=== PATIENT | female | born 1950 | race Two or more races ===

== ENCOUNTER → 2024-05-26 | Outpatient (CLI) | payer MEDICAID ==
[2024-05-26 09:21] LABS: Basophils # (auto) 0.1 10 ^3/uL (0-0.2); Basophils % (auto) 0.7 % (0.0-2.0); Eosinophils # (auto) 0.3 10 ^3/uL (0-0.8); Eosinophils % (auto) 2.2 % (0.0-7.0); Hematocrit 46.1 % (36.0-46.0); Hemoglobin 15.2 g/dL (12.2-16.2); Lymphocytes # (auto) 3.9 10 ^3/uL (0.4-5.4); Lymphocytes % (auto) 31.7 % (10.0-50.0); Mean Corpuscular Hemoglobin 29.1 pg (28.0-32.0); Mean Corpuscular Volume 88.3 fL (80.0-100.0); Monocytes # (auto) 0.5 10 ^3/uL (0-1.3); Monocytes % (auto) 3.8 % (0.0-12.0); Neutrophils # (auto) 7.5 10 ^3/uL (1.6-8.6); Neutrophils % (auto) 61.6 % (37.0-80.0); Platelet Count (auto) 293 10^3/uL (140-450); Red Blood Cells 5.22 10^6/uL (4.0-5.20); White Blood Cell 12.2 10^3/uL (4.4-10.8)
[2024-05-26 09:34] LABS: Urine Bacteria FEW /hpf (None Seen); Urine Blood 1+ /uL (Negative); Urine Clarity Clear (Clear); Urine Color Light-Yellow (Yellow); Urine Protein, UAD 2+ (Negative); Urine Specific Gravity 1.012 (1.001-1.035); Urine Urobilinogen Normal (Negative); Urine WBC 3 /hpf (0 - 5); Urine pH 6.5 (5.0-9.0)
[2024-05-26 09:47] LABS: Alanine Aminotransferase 14 U/L (7-40); Albumin 4.9 g/dL (3.2-4.8); Alkaline Phosphatase 94 U/L (46-116); Anion Gap 10 (5-15); Aspartate Aminotransferase 13 U/L (13-40); BUN/Creatinine Ratio 20.8 (10.0-20.0); Blood Urea Nitrogen 15 mg/dL (9-23); Calcium 10.6 mg/dL (8.7-10.4); Carbon Dioxide 24 mmol/L (20-31); Chloride 104 mmol/L (98-107); Glucose 126 mg/dL (74-106); LDL Cholesterol 86 mg/dL (< 100); Potassium 4.2 mmol/L (3.5-5.1); Sodium 138 mmol/L (136-145); Triglycerides 160 mg/dL (< 150)
[2024-05-26 09:48] LABS: Bilirubin, Total 0.6 mg/dL (0.2-1.0); Cholesterol 158 mg/dL (< 200); HDL Cholesterol 52 mg/dL (40-59); Total Protein 7.8 g/dL (5.7-8.2)
[2024-05-27 12:22] LABS: Folate (Folic Acid) 23.25 ng/mL (>5.38)
== END | disposition home or self-care (01) ==
LOC: LAB 08:48
PROVIDERS: ATTEND Internal Medicine
DX: E55.9 Vitamin D deficiency, unspecified (principal); E61.2 Magnesium deficiency; R94.6 Abnormal results of thyroid function studies; R73.09 Other abnormal glucose; R82.79 Other abnormal findings on microbiological examination of urine; R82.90 Unspecified abnormal findings in urine; D51.9 Vitamin B12 deficiency anemia, unspecified; R79.89 Other specified abnormal findings of blood chemistry
CPT/HCPCS: 36415; 80053; 80061; 81001; 82306; 82607; 82746; 83036; 84443; 84550; 85025; 87086

== ENCOUNTER 2024-06-15 08:10 | Emergency (ER) | payer MEDICAID ==
[~2024-06-15] VITALS: Ht 165.1 cm; Wt 93.0 kg
--- NOTE | 2024-06-15 08:39 | ED.PDOC ---
History of Present Illness HPI Comments 73 y/o F, with a Hx of DDD, DM, HLD, HTN, hypothyroidism, and morbid obesity, presents with daughter for c/o posterior neck pain that radiates towards her left-arm, with associated numbness and tingling in her left upper extremity. Per daughter, patient reports having symptoms for the past 8 days, with minimal relief or improvement with [id number] Tylenol. She was also reported to have had chest pain and shortness of breath during initial onset of symptoms for the past 2 days that has since subsided. She denies having any current chest pain, shortness of breath, palpitations, weakness, fever, chills, or other associated symptoms or modifiers at this time. Chief Complaint: Upper Extremity Time Seen by MD: 08:30 Reviewed Notes: Nurses Notes, Medications, Allergies Allergies: Coded Allergies: NO KNOWN ALLERGIES (Unverified , 06/15/24) Home Meds Active Scripts Meloxicam (Meloxicam) 7.5 Mg Tab, 1 TAB PO DAILY PRN, #30 TAB 2 Refills prn pain, take with food Prov:PIERRE CHAMPION MD 06/15/24 Methocarbamol (Methocarbamol) 500 Mg Tab, 500 MG PO TID PRN, #30 TAB prn muscle pain/spasm Prov:PIERRE CHAMPION MD 06/15/24 Gabapentin (Gabapentin) 300 Mg Cap, 1 CAP PO TID PRN, #90 CAP 5 Refills prn nerve pain Prov:PIERRE CHAMPION MD 06/15/24 Diclofenac Sodium (Topical) (Diclofenac Sodium) 1 % Gel, 1 % TD TIDPRN PRN, #3.5 OZ prn pain Prov:PIERRE CHAMPION MD 06/15/24 Information Source: Patient, Relative (Child) Mode of Arrival: Ambulatory Severity: Moderate Timing: Days Duration: Since onset Prehospital treatment: None Past Medical History PAST MEDICAL HISTORY: DM, High Lipids, HTN, Thyroid (hypothyroidism ) Past Medical History (Other): degenerative disc disease (DDD), morbid obesity Surgical History: Denies all 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 Hx Social History Smoker: Non-Smoker Alcohol: Denies ETOH Use Drugs: Denies Drug Use Lives In: Home Neurological: reports: numbness (left arm), tingling (left arm) Musculoskeletal: reports: neck pain (posterior side), others (left arm pain ) All Other Systems: Reviewed and Negative (negative unless otherwise stated above or in HPI) Physical Exam General Appearance: No Apparent Distress, Obese HEENT: Other (Unremarkable) Neck: Full Range of Motion, Normal Inspection, Other (Posterior Midline and left paraspinal tenderness) Respiratory: Lungs Clear, No Accessory Muscle Use, No Respiratory Distress, Normal Breath Sounds Cardiovascular: No Edema, No JVD, Regular Rate/Rhythm Breast Exam: Deferred Gastrointestinal: Non Tender, Soft Genitalia: Deferred Pelvic: Deferred Rectal: Deferred Extremities: Normal inspection, Normal range of motion, Non-tender, No pedal edema Neurologic: Alert (Oriented x4), senior field engineer II-XII nml as Tested, No Motor Deficits, Normal Affect, Normal Mood, No Sensory Deficits Cerebellar Function: NOT DONE Reflexes: NOT DONE Skin: Dry, Normal Color, Warm Lymphatic: NOT DONE Was a procedure done? Was a procedure done?: No EKG EKG : Comments Sinus rhythm, rate 98, normal SD and QRS intervals, QTC 469, normal axis, normal QRS, no ST/T changes. Differential Dx Considerations may include: Cervical radiculopathy, degenerative disc disease, musculoskeletal pain, spine lesion, ACS, ID, chest wall pain, arrhythmia, pneumonia, among others X-Ray, Labs, Meds, VS Vital Signs Date Time Temp Pulse Resp B/P (MAP) Pulse Ox O2 Delivery O2 Flow Rate FiO2 06/15/24 09:26 97.8 94 16 140/69 (92) 97 97.8 06/15/24 09:26 94 16 97 Room Air 06/15/24 08:30 97.8 98 18 152/65 (94) 97 06/15/24 08:28 98 Lab Test 06/15/24 11:42 06/15/24 10:10 06/15/24 09:20 06/15/24 08:24 Range/Units Troponin I High Sensitivity Pending < 3 L < 3 L </=34 ng/L White Blood Count 10.4 4.4-10.8 10^3/uL Red Blood Count 4.94 4.0-5.20 10^6/uL Hemoglobin 14.8 12.2-16.2 g/dL Hematocrit 43.9 36.0-46.0 % Mean Corpuscular Volume 88.9 80.0-100.0 fL Mean Corpuscular Hemoglobin 29.9 28.0-32.0 pg Mean Corpuscular Hemoglobin Concent 33.6 32.0-36.0 g/dL Red Cell Distribution Width 13.9 11.8-14.3 % Platelet Count 299 140-450 10^3/uL Mean Platelet Volume 7.8 6.9-10.8 fL Neutrophils (%) (Auto) 56.3 37.0-80.0 % Lymphocytes (%) (Auto) 36.1 10.0-50.0 % Monocytes (%) (Auto) 4.5 0.0-12.0 % Eosinophils (%) (Auto) 2.2 0.0-7.0 % Basophils (%) (Auto) 0.9 0.0-2.0 % Neutrophils # (Auto) 5.9 1.6-8.6 10 ^3/uL Lymphocytes # (Auto) 3.7 0.4-5.4 10 ^3/uL Monocytes # (Auto) 0.5 0-1.3 10 ^3/uL Eosinophils # (Auto) 0.2 0-0.8 10 ^3/uL Basophils # (Auto) 0.1 0-0.2 10 ^3/uL Nucleated Red Blood Cells 0.1 % Sodium Level 140 136-145 mmol/L Potassium Level 4.1 3.5-5.1 mmol/L Chloride Level 106 98-107 mmol/L Carbon Dioxide Level 24 20-31 mmol/L Anion Gap 10 5-15 Blood Urea Nitrogen 14 9-23 mg/dL Creatinine 0.75 0.550-1.02 mg/dL Glomerular Filtration Rate Calc 84 >90 mL/min BUN/Creatinine Ratio 18.7 10.0-20.0 Serum Glucose 171 H 74-106 mg/dL Calcium Level 10.0 8.7-10.4 mg/dL B-Type Natriuretic Peptide 9.04 0-100 pg/mL Urine Color Yellow Yellow Urine Clarity Clear Clear Urine pH 5.5 5.0-9.0 Urine Specific [place] 1.020 1.001-1.035 Urine Protein 1+ H Negative Urine Ketones Negative Negative Urine Blood Trace H Negative /uL Urine Nitrite Negative Negative Urine Bilirubin Negative Negative Urine Urobilinogen Normal Negative mg/dL Urine Leukocyte Esterase Trace Negative /uL Urine RBC 5 0 - 4 /hpf Urine WBC 2 0 - 5 /hpf Urine Squamous Epithelial Cells Few <5 /hpf Urine Bacteria Few H None Seen /hpf Urine Mucus Few None Seen Urine Glucose Normal Normal mg/dL Test 06/15/24 08:22 Range/Units POC Glucose 176 H 70-106 mg/dl Current Medications Medications (Trade) Dose Ordered Sig/[place] Route Start Time Stop Time Status Last Admin Dexamethasone Sodium Phosphate (Decadron Injection) 10 mg ONCE ONCE IM 06/15/24 09:00 06/15/24 09:01 DC 06/15/24 09:16 Ketorolac Tromethamine (Toradol Injection) 60 mg ONCE ONCE IM 06/15/24 09:00 06/15/24 09:01 DC 06/15/24 09:17 Gabapentin (Neurontin Capsule) 300 mg ONCE ONCE PO 06/15/24 09:00 06/15/24 09:01 DC 06/15/24 09:14 Methocarbamol (Robaxin) 500 mg ONCE ONCE PO 06/15/24 09:00 06/15/24 09:01 DC 06/15/24 09:15 [place] [id number] Ph: [phone] DIAGNOSTIC IMAGING Diagnostic Imaging Report : [id number] Signed PATIENT: KATHY HAJI ACCT: [id number] UNIT: [id number] : 1950 LOC: ER ROOM / BED: / AGE / SEX: 73 / F ADM STATUS: REG ER SERVICE 1 ORDERING PHYSICIAN: PIERRE CHAMPION MD PROCEDURE(s): CXRP - CHEST PORTABLE REASON: cp ORDER NUMBER(s): [id number], ACCESSION NUMBER(s): [id number] CHEST RADIOGRAPH Indication: cp Technique: Single frontal view of the chest was obtained COMPARISON: None FINDINGS: Lines and Tubes: None Lungs: Clear Pleura: No effusion. No pneumothorax. Cardiomediastinal contours: Unremarkable Bones: Unremarkable IMPRESSION: No acute disease. ATED BY: TELLO MEDINA MD DICTATED DATE/TIME: 06/15/24926 SIGNED BY: TELLO MEDINA MD SIGNED DATE/TIME: 06/15/24926 CC: [place] [id number] Ph: [phone] DIAGNOSTIC IMAGING Diagnostic Imaging Report : [id number] Signed PATIENT: KATHY HAJI ACCT: [id number] UNIT: [id number] : 1950 LOC: ER ROOM / BED: / AGE / SEX: 73 / F ADM STATUS: REG ER SERVICE 1 ORDERING PHYSICIAN: PIERRE CHAMPION MD PROCEDURE(s): CS2 - CERVICAL WITHOUT CONTRAST REASON: L neck pain radiating to LUE with LUE numb ORDER NUMBER(s): [id number], ACCESSION NUMBER(s): [id number] Procedure: CT CERVICAL WITHOUT CONTRAST 06/15/2024 08:51 AM Indication: L neck pain radiating to LUE with LUE numb Comparison Study: None. Technique: Axial images were obtained and reformatted in coronal and sagittal planes. All CT scans at this medical facility are performed using dose modulation techniques as appropriate to a performed exam including the following: Automated exposure control was utilized; adjustment of the MA and/or KV according to patient size; and use of iterative reconstruction technique. CT Dose: CTDI volume is 20.78 mGy. Dose-length product is 610.5 mGy*cm FINDINGS: Bones: The vertebrae are normal in height. Mild degenerative grade 1 anterolisthesis C4-C5. Lateral masses C1 and C2 are well aligned. The posterior facet joints are well aligned. There is severe narrowing of C6-C7 disc height. Discogenic endplate changes are seen at several levels. Posterior facet arthropathy is seen at several levels. Soft tissues: Paraspinal and prevertebral soft tissues are within normal limits. Ossification ligamentum nuchae noted C6 and C7 levels. Other: Moderate paranasal sinus disease noted. IMPRESSION: 1. Straightening of normal lordosis that could be positional, reflect muscle s pasm or pain. Correlate clinically. 2. No acute osseous abnormality. 3. Multilevel degenerative disc disease and posterior facet arthropathy. ATED BY: JULISSA WELLS MD DICTATED DATE/TIME: 06/15/24937 SIGNED BY: JULISSA WELLS MD SIGNED DATE/TIME: 06/15/24937 CC: X-Ray, Labs, Meds, VS Comment 73 y/o F, with a Hx of DDD, DM, HLD, HTN, hypothyroidism, and morbid obesity, complaining of left-sided neck pain radiating to the left upper extremity, associated with left upper extremity pain and numbness. Also reported chest pain 2 days ago Vitals remarkable for BP 152/65 Exam remarkable for posterior midline neck tenderness and left paraspinal muscle tenderness to palpation. Left upper extremity neurovascularly intact. Rhythm strip independently interpreted by me: Sinus rhythm, rate 98, no ectopy. CT cervical spine: IMPRESSION: 1. Straightening of normal lordosis that could be positional, reflect muscle spasm or pain. Correlate clinically. 2. No acute osseous abnormality. 3. Multilevel degenerative disc disease and posterior facet arthropathy. Chest x-ray: No acute disease CBC, basic metabolic panel, BNP and troponins unremarkable for any abnormality of acute significance UA abnormal consistent with possible UTI Patient treated with the following in the ED: Toradol 60 mg IM, Decadron 10 mg IM, gabapentin 300 mg p.o., Robaxin 500 mg p.o., Rocephin 1 g IM On re-evaluation, patient states pain has improved. Left upper extremities neurovascularly intact. No other focal neurologic deficit. No chest pain or shortness of breath. Hospitalization was considered, however patient had rapid improvement of her symptoms with treatment in the ED, cardiac workup is unremarkable, and I no longer feel hospitalization is necessary. Patient appears stable for close outpatient follow up with her primary physician for referral for MRI of her cervical spine. Rx meloxicam, gabapentin, Keflex, Robaxin, Voltaren Images Reviewed?: Images reviewed and evaluated by me Time of 1ST Reevaluation: 09:00 Reevaluation 1ST: Unchanged Patient Education/Counseling: Diagnosis, Treatment Family Education/Counseling: Diagnosis, Treatment Additional Information The following tests were ordered, and results were reviewed by me: Labs (Trop, BMP, UA,, BNP, CBC), PHA (methocarbamol, gabapentin, ketorolac injection, dexamethasone injection), EKG, CT Cervical w/o contrast, CXR Additional information was gathered from interviewing the following independent historians: family I reviewed and agreed with the following test results read by other providers: CT Cervical w/o contrast, CXR I discussed treatments and results with medical personnel and: family Departure 1 Departure Time of Disposition: 12:24 Impression: Primary Impression: Cervical radiculopathy Additional Impressions: Chest pain Qualified Codes: R07.9 - Chest pain, unspecified UTI (urinary tract infection) Qualified Codes: N39.0 - Urinary tract infection, site not specified Disposition: HOME / SELF CARE / HOMELESS Condition: Stable Additional Instructions: Your CT scan showed degenerative changes. Your blood tests including heart tests were unremarkable. Your urine test was abnormal, possibly reflecting a u rinary tract infection. I have prescribed pain medicine and muscle relaxers for your neck/arm pain, and antibiotics to treat your urinary tract infection. Follow up with your primary doctor in 1-2 days for referral for MRI of your cervical spine. e-Prescriptions Cephalexin Monohydrate (Cephalexin) 500 Mg Cap 1 CAP PO QID for 10 Days, #40 CAP Prov: PIERRE CHAMPION MD 06/15/24 Meloxicam (Meloxicam) 7.5 Mg Tab 1 TAB PO DAILY PRN, #30 TAB 2 Refills prn pain, take with food Prov: PIERRE CHAMPION MD 06/15/24 Methocarbamol (Methocarbamol) 500 Mg Tab 500 MG PO TID PRN, #30 TAB prn muscle pain/spasm Prov: PIERRE CHAMPION MD 06/15/24 Gabapentin (Gabapentin) 300 Mg Cap 1 CAP PO TID PRN, #90 CAP 5 Refills prn nerve pain Prov: PIERRE CHAMPION MD 06/15/24 Diclofenac Sodium (Topical) (Diclofenac Sodium) 1 % Gel 1 % TD TIDPRN PRN, #3.5 OZ prn pain Prov: PIERRE CHAMPION MD 06/15/24 Discharged With: Relative Critical Care Note Critical Care Time?: No Stability Stability form required: No Heart Score Heart Score: Heart Score Response (Comments) Value History Slightly Suspicious 0 EKG Repolarization Disturb 1 Age >65 2 Risk Factors N/A 0 Troponin N/A 0 Total 3 I personally scribed for PIERRE CHAMPION MD ([email or web address]) on 06/15/24 at 08:38. Electronically submitted by Bill Dent ([email or web address]). I personally scribed for PIERRE CHAMPION MD ([email or web address]) on 06/15/24 at 08:54. Electronically submitted by Bill Dent ([email or web address]). I personally scribed for PIERRE CHAMPION MD ([email or web address]) on 06/15/24 at 10:38. Electronically submitted by Bill Dent ([email or web address]). PIERRE CHAMPION MD Jun 15, 2024 08:38
[2024-06-15] MEDS ORDERED: METH-1181 PO (09:04)
[2024-06-15] MEDS ORDERED: DICL1GEL73 TD (09:04)
[2024-06-15] MEDS ORDERED: MELO7.5T7 PO (09:04)
[2024-06-15] MEDS ORDERED: GABA-1250 PO (09:04)
[2024-06-15] MEDS: GABAPENTIN 300 MG CAP PO ONE (09:14)
[2024-06-15] MEDS: METHOCARBAMOL 500 MG TAB PO ONE (09:15)
[2024-06-15] MEDS: DexAMETHasone SOD PHOS 10MG/1ML VIAL INJ IM ONE (09:16)
[2024-06-15] MEDS: KETOROLAC TROMETH 60MG/2ML VIAL IM ONE (09:17)
[2024-06-15 09:18] LABS: Urine Bacteria FEW /hpf (None Seen); Urine Blood TRACE /uL (Negative); Urine Clarity Clear (Clear); Urine Color Yellow (Yellow); Urine Mucus FEW (None Seen); Urine Protein, UAD 1+ (Negative); Urine Urobilinogen Normal (Negative); Urine WBC 2 /hpf (0 - 5); Urine pH 5.5 (5.0-9.0)
--- NOTE | 2024-06-15 09:31 | DVH ---
CHEST RADIOGRAPH Indication: cp Technique: Single frontal view of the chest was obtained COMPARISON: None FINDINGS: Lines and Tubes: None Lungs: Clear Pleura: No effusion. No pneumothorax. Cardiomediastinal contours: Unremarkable Bones: Unremarkable IMPRESSION: No acute disease.
[2024-06-15 09:35] LABS: Basophils # (auto) 0.1 10 ^3/uL (0-0.2); Basophils % (auto) 0.9 % (0.0-2.0); Eosinophils # (auto) 0.2 10 ^3/uL (0-0.8); Eosinophils % (auto) 2.2 % (0.0-7.0); Hematocrit 43.9 % (36.0-46.0); Hemoglobin 14.8 g/dL (12.2-16.2); Lymphocytes # (auto) 3.7 10 ^3/uL (0.4-5.4); Lymphocytes % (auto) 36.1 % (10.0-50.0); Mean Corpuscular Hemoglobin 29.9 pg (28.0-32.0); Mean Corpuscular Hgb Conc. 33.6 g/dL (32.0-36.0); Mean Corpuscular Volume 88.9 fL (80.0-100.0); Monocytes # (auto) 0.5 10 ^3/uL (0-1.3); Monocytes % (auto) 4.5 % (0.0-12.0); Neutrophils # (auto) 5.9 10 ^3/uL (1.6-8.6); Neutrophils % (auto) 56.3 % (37.0-80.0); Nucleated Red Blood Cells % 0.1 %; Platelet Count (auto) 299 10^3/uL (140-450); Red Blood Cells 4.94 10^6/uL (4.0-5.20); Red Cell Distribution Width 13.9 % (11.8-14.3); White Blood Cell 10.4 10^3/uL (4.4-10.8)
--- NOTE | 2024-06-15 09:40 | DVH ---
Procedure: CT CERVICAL WITHOUT CONTRAST 06/15/2024 08:51 AM Indication: L neck pain radiating to LUE with LUE numb Comparison Study: None. Technique: Axial images were obtained and reformatted in coronal and sagittal planes. All CT scans at this medical facility are performed using dose modulation techniques as appropriate t o a performed exam including the following: Automated exposure control was utilized; adjustment of th e MA and/or KV according to patient size; and use of iterative reconstruction technique. CT Dose: CTDI volume is 20.78 mGy. Dose-length product is 610.5 mGy*cm FINDINGS: Bones: The vertebrae are normal in height. Mild degenerative grade 1 anterolisthesis C4-C5. Lateral masses C1 and C2 are well aligned. The posterior facet joints are well aligned. There is severe narro wing of C6-C7 disc height. Discogenic endplate changes are seen at several levels. Posterior facet arthropathy is seen at several levels. Soft tissues: Paraspinal and prevertebral soft tissues are within normal limits. Ossification ligamen xavier nuchae noted C6 and C7 levels. Other: Moderate paranasal sinus disease noted. IMPRESSION: 1. Straightening of normal lordosis that could be positional, reflect muscle spasm or pain. Correlate clinically. 2. No acute osseous abnormality. 3. Multilevel degenerative disc disease and posterior facet arthropathy.
[2024-06-15 09:43] LABS: Chloride 106 mmol/L (98-107); Potassium 4.1 mmol/L (3.5-5.1); Sodium 140 mmol/L (136-145)
[2024-06-15 09:44] LABS: Anion Gap 10 (5-15); Carbon Dioxide 24 mmol/L (20-31)
[2024-06-15 09:49] LABS: BUN/Creatinine Ratio 18.7 (10.0-20.0); Blood Urea Nitrogen 14 mg/dL (9-23)
[2024-06-15 10:08] LABS: Glucose 171 mg/dL (74-106)
[2024-06-15] MEDS: cefTRIAXone W LIDOCAINE 1 GM IM IM ONE (12:15)
[2024-06-15] MEDS ORDERED: CEPH500C PO (12:25)
[2024-06-15 12:38] VITALS: BP 145/87; PULSE 89; RESP 18; TEMP 97.9; O2SAT 95
--- NOTE | 2024-06-17 14:50 | ECG ---
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
== END 2024-06-15 13:17 | disposition home or self-care (01) ==
LOC: ER 08:10
DX: M50.10 Cervical disc disorder with radiculopathy, unspecified cervical region (principal); N39.0 Urinary tract infection, site not specified; I10 Essential (primary) hypertension; E78.5 Hyperlipidemia, unspecified; E11.9 Type 2 diabetes mellitus without complications; E03.9 Hypothyroidism, unspecified
CPT/HCPCS: 36415; 71045; 72125; 80048; 81001; 82962; 83880; 84484; 85025; 93005; 96372; 99285; J0696; J1100; J1885

== ENCOUNTER → 2024-07-04 | Outpatient (CLI) | payer MEDICAID ==
[~2024-07-04] MED LIST: CEPH500C PO; DICL1GEL73 TD; GABA-1250 PO; MELO7.5T7 PO; METH-1181 PO
[2024-07-04 10:53] LABS: Albumin 4.6 g/dL (3.2-4.8)
[2024-07-04 10:54] LABS: Bilirubin, Direct 0.2 mg/dL (<0.3); Bilirubin, Total 0.7 mg/dL (0.2-1.0); Total Protein 7.3 g/dL (5.7-8.2)
== END | disposition home or self-care (01) ==
LOC: LAB 09:38
PROVIDERS: ATTEND Podiatrist
DX: B35.1 Tinea unguium (principal)
CPT/HCPCS: 36415; 80076

== ENCOUNTER → 2024-09-08 | Outpatient (CLI) | payer MEDICAID ==
[2024-09-08 09:55] LABS: Basophils # (auto) 0.1 10 ^3/uL (0-0.2); Basophils % (auto) 1.2 % (0.0-2.0); Eosinophils # (auto) 0.3 10 ^3/uL (0-0.8); Eosinophils % (auto) 3.1 % (0.0-7.0); Hemoglobin 14.3 g/dL (12.2-16.2); Lymphocytes # (auto) 2.9 10 ^3/uL (0.4-5.4); Lymphocytes % (auto) 33.7 % (10.0-50.0); Mean Corpuscular Hemoglobin 29.3 pg (28.0-32.0); Mean Corpuscular Hgb Conc. 32.5 g/dL (32.0-36.0); Mean Corpuscular Volume 89.9 fL (80.0-100.0); Monocytes # (auto) 0.5 10 ^3/uL (0-1.3); Monocytes % (auto) 5.6 % (0.0-12.0); Neutrophils # (auto) 4.9 10 ^3/uL (1.6-8.6); Neutrophils % (auto) 56.4 % (37.0-80.0); Platelet Count (auto) 302 10^3/uL (140-450); Red Blood Cells 4.89 10^6/uL (4.0-5.20); Red Cell Distribution Width 13.9 % (11.8-14.3); White Blood Cell 8.7 10^3/uL (4.4-10.8)
[2024-09-08 10:07] LABS: Urine Bacteria FEW /hpf (None Seen); Urine Blood 1+ /uL (Negative); Urine Clarity Clear (Clear); Urine Color Light-Yellow (Yellow); Urine Mucus FEW (None Seen); Urine Protein, UAD TRACE (Negative); Urine Specific Gravity 1.022 (1.001-1.035); Urine Squamous Epithelial Cell FEW /hpf (<5); Urine Urobilinogen Normal (Negative); Urine WBC 4 /HPF (0-5); Urine pH 5.5 (5.0-9.0)
[2024-09-08 10:16] LABS: Alanine Aminotransferase 23 U/L (7-40); Alkaline Phosphatase 86 U/L (46-116); Anion Gap 9 (5-15); Aspartate Aminotransferase 17 U/L (13-40); BUN/Creatinine Ratio 23.9 (10.0-20.0); Bilirubin, Total 0.4 mg/dL (0.2-1.0); Blood Urea Nitrogen 17 mg/dL (9-23); Carbon Dioxide 25 mmol/L (20-31); Cholesterol 152 mg/dL (< 200); HDL Cholesterol 48 mg/dL (40-59); LDL Cholesterol 86 mg/dL (< 100); Potassium 4.1 mmol/L (3.5-5.1); Sodium 142 mmol/L (136-145); Total Protein 7.5 g/dL (5.7-8.2); Triglycerides 130 mg/dL (< 150)
[2024-09-08 10:37] LABS: Albumin 4.9 g/dL (3.2-4.8); Chloride 108 mmol/L (98-107); Glucose 122 mg/dL (74-106)
[2024-09-08 11:03] LABS: Uric Acid 7.2 mg/dL (3.1-7.8)
[2024-09-08 11:30] LABS: Folate (Folic Acid) 17.24 ng/mL (>5.38)
== END | disposition home or self-care (01) ==
LOC: LAB 09:11
PROVIDERS: ATTEND Internal Medicine
DX: E61.2 Magnesium deficiency (principal); E55.9 Vitamin D deficiency, unspecified; D51.9 Vitamin B12 deficiency anemia, unspecified; E78.49 Other hyperlipidemia; E79.0 Hyperuricemia without signs of inflammatory arthritis and tophaceous disease; R94.6 Abnormal results of thyroid function studies; R82.79 Other abnormal findings on microbiological examination of urine; R82.998 Other abnormal findings in urine; R73.09 Other abnormal glucose; R68.89 Other general symptoms and signs; R82.90 Unspecified abnormal findings in urine
CPT/HCPCS: 36415; 80053; 80061; 81001; 82306; 82607; 82746; 83036; 84443; 84550; 85025; 87086

== ENCOUNTER 2024-12-08 07:39 | Outpatient (CLI) | payer MEDICAID ==
[2024-12-08 08:17] LABS: Basophils # (auto) 0.1 10 ^3/uL (0-0.2); Basophils % (auto) 0.6 % (0.0-2.0); Eosinophils # (auto) 0.3 10 ^3/uL (0-0.8); Eosinophils % (auto) 3.3 % (0.0-7.0); Hematocrit 44.9 % (36.0-46.0); Lymphocytes # (auto) 3.2 10 ^3/uL (0.4-5.4); Lymphocytes % (auto) 31.6 % (10.0-50.0); Mean Corpuscular Hemoglobin 29.6 pg (28.0-32.0); Mean Corpuscular Hgb Conc. 33.5 g/dL (32.0-36.0); Mean Corpuscular Volume 88.4 fL (80.0-100.0); Monocytes # (auto) 0.5 10 ^3/uL (0-1.3); Monocytes % (auto) 4.6 % (0.0-12.0); Neutrophils % (auto) 59.9 % (37.0-80.0); Nucleated Red Blood Cells % 0.1 %; Platelet Count (auto) 289 10^3/uL (140-450); Red Blood Cells 5.08 10^6/uL (4.0-5.20); Red Cell Distribution Width 13.9 % (11.8-14.3)
[2024-12-08 08:29] LABS: Urine Bacteria FEW /hpf (None Seen); Urine Blood 2+ /uL (Negative); Urine Clarity Clear (Clear); Urine Color Light-Yellow (Yellow); Urine Protein, UAD TRACE (Negative); Urine Specific Gravity 1.019 (1.001-1.035); Urine Squamous Epithelial Cell FEW /hpf (<5); Urine Urobilinogen Normal (Negative); Urine WBC 6 /HPF (0-5); Urine pH 5.5 (5.0-9.0)
[2024-12-08 08:43] LABS: Creatinine, Urine 77.38 mg/dL (30.0-125.0)
[2024-12-08 08:46] LABS: Alanine Aminotransferase 18 U/L (7-40); Alkaline Phosphatase 94 U/L (46-116); Anion Gap 12 (5-15); Aspartate Aminotransferase 14 U/L (13-40); BUN/Creatinine Ratio 22.9 (10.0-20.0); Blood Urea Nitrogen 16 mg/dL (9-23); Carbon Dioxide 25 mmol/L (20-31); Chloride 105 mmol/L (98-107); Cholesterol 192 mg/dL (< 200); HDL Cholesterol 44 mg/dL (40-59); Magnesium 1.9 mg/dL (1.6-2.6); Potassium 4.1 mmol/L (3.5-5.1); Sodium 142 mmol/L (136-145); Total Protein 7.8 g/dL (5.7-8.2)
[2024-12-08 08:47] LABS: Bilirubin, Total 0.4 mg/dL (0.2-1.0); Calcium 10.5 mg/dL (8.7-10.4); Glucose 110 mg/dL (74-106); LDL Cholesterol 123 mg/dL (< 100); Triglycerides 190 mg/dL (< 150)
[2024-12-08 09:12] LABS: Uric Acid 7.4 mg/dL (3.1-7.8)
== END 2024-12-08 17:00 | disposition home or self-care (01) ==
LOC: LAB 07:39
PROVIDERS: ATTEND Nurse Practitioner Family
DX: E11.9 Type 2 diabetes mellitus without complications (principal); E03.9 Hypothyroidism, unspecified; K21.9 Gastro-esophageal reflux disease without esophagitis; F51.01 Primary insomnia; L29.9 Pruritus, unspecified; Z68.36 Body mass index [BMI] 36.0-36.9, adult; Z79.899 Other long term (current) drug therapy
CPT/HCPCS: 36415; 80053; 80061; 81001; 82043; 82306; 82570; 82607; 83036; 83735; 84443; 84550; 85025; 87086

== ENCOUNTER 2024-12-12 08:56 | Outpatient (CLI) | payer MEDICAID | END 2024-12-12 17:00 | disposition home or self-care (01) | LOC: LAB 08:56 | PROVIDERS: ATTEND Nurse Practitioner Family | DX: E11.9 Type 2 diabetes mellitus without complications (principal); E03.9 Hypothyroidism, unspecified; K21.9 Gastro-esophageal reflux disease without esophagitis; L29.9 Pruritus, unspecified; F51.01 Primary insomnia; Z68.36 Body mass index [BMI] 36.0-36.9, adult | CPT/HCPCS: 82270 ==

== ENCOUNTER 2025-04-06 07:29 | Outpatient (CLI) | payer MEDICAID ==
[2025-04-06 08:14] LABS: Hematocrit 44.6 % (36.0-46.0); Hemoglobin 15.1 g/dL (12.2-16.2); Mean Corpuscular Hemoglobin 30.0 pg (28.0-32.0); Mean Corpuscular Volume 88.6 fL (80.0-100.0); Nucleated Red Blood Cells % 0.0 %; Urine Protein, UAD 1+ (Negative)
[2025-04-06 08:34] LABS: Alanine Aminotransferase 14 U/L (7-40); Alkaline Phosphatase 95 U/L (46-116); Anion Gap 13 (5-15); BUN/Creatinine Ratio 19.4 (10.0-20.0); Blood Urea Nitrogen 12 mg/dL (9-23); Calcium 9.9 mg/dL (8.7-10.4); Carbon Dioxide 25 mmol/L (20-31); Chloride 104 mmol/L (98-107); Glucose 103 mg/dL (74-106); Magnesium 1.9 mg/dL (1.6-2.6); Potassium 4.3 mmol/L (3.5-5.1); Sodium 142 mmol/L (136-145); Total Protein 7.9 g/dL (5.7-8.2)
[2025-04-06 08:35] LABS: Albumin 4.9 g/dL (3.2-4.8); Cholesterol 150 mg/dL (< 200); HDL Cholesterol 41 mg/dL (40-59); Triglycerides 178 mg/dL (< 150)
[2025-04-06 08:36] LABS: Bilirubin, Total 0.5 mg/dL (0.2-1.0)
[2025-04-06 09:05] LABS: Uric Acid 6.7 mg/dL (3.1-7.8)
== END 2025-04-06 17:00 | disposition home or self-care (01) ==
LOC: LAB 07:29
PROVIDERS: ATTEND Family Medicine
DX: E11.9 Type 2 diabetes mellitus without complications (principal); E78.49 Other hyperlipidemia; E61.2 Magnesium deficiency; E79.0 Hyperuricemia without signs of inflammatory arthritis and tophaceous disease; E55.9 Vitamin D deficiency, unspecified; D51.9 Vitamin B12 deficiency anemia, unspecified; R82.79 Other abnormal findings on microbiological examination of urine; R82.90 Unspecified abnormal findings in urine; R82.998 Other abnormal findings in urine; R94.6 Abnormal results of thyroid function studies; R68.89 Other general symptoms and signs
CPT/HCPCS: 36415; 80053; 80061; 81001; 82306; 82607; 82746; 83036; 83735; 84443; 84480; 84550; 85025; 87086